=== PATIENT | female | born 1975 | race Two or more races ===

== ENCOUNTER 2021-02-17 09:30 | Inpatient (IN) | payer OTHER ==
[~2021-02-17] VITALS: Ht 165.1 cm; Wt 90.3 kg
[2021-02-17] MEDS ORDERED: PROFERRIN-FORT1 EACH PO (11:28)
[2021-02-22] MEDS ORDERED: OXYC1TAB9 PO (15:29)
[2021-02-22] MEDS ORDERED: DOCUSATE SODIU100 MG PO (15:30)
== END 2021-02-22 15:39 | DRG 743 ==
LOC: O/R 02-19 05:22 → OB/GYN 02-19 05:22 → SURH 02-19 08:30 → OB/GYN 02-19 12:02
PROVIDERS: ADMIT Obstetrics & Gynecology; ATTEND Obstetrics & Gynecology
PROC: 0UT70ZZ Resection of Bilateral Fallopian Tubes, Open Approach (ICD-10-PCS; 2021-02-19)
PROC: 0UT90ZZ Resection of Uterus, Open Approach (ICD-10-PCS; principal; 2021-02-19 08:30)
DX: D25.1 Intramural leiomyoma of uterus (principal); N93.8 Other specified abnormal uterine and vaginal bleeding; Z20.822 Contact with and (suspected) exposure to COVID-19; N84.0 Polyp of corpus uteri

== ENCOUNTER 2021-03-15 16:56 | Emergency (ER) | payer OTHER ==
[~2021-03-15] VITALS: Ht 170.2 cm; Wt 87.5 kg
[~2021-03-15 16:56] MED LIST: DOCUSATE SODIU100 MG PO; OXYC1TAB9 PO; PROFERRIN-FORT1 EACH PO
== END 2021-03-16 14:30 | disposition home or self-care (01) ==
LOC: ER 16:56
DX: M79.604 Pain in right leg (principal); I82.491 Acute embolism and thrombosis of other specified deep vein of right lower extremity

== ENCOUNTER 2023-06-15 05:50 | Inpatient (IN) | payer OTHER ==
[2023-06-15 19:26] LABS: HEMATOCRIT 40.5 % (36.0-45.00); HEMOGLOBIN 13.1 g/dL (12.0-15.00); MEAN CELL VOLUME 89.2 fL (80.00-100.00); MEAN CORPUSCULAR HEMOGLOBIN 28.9 pg (27.00-32.0); MEAN CORPUSCULAR HGB CONC 32.5 g/dl (32.0-36.0); PLATELET COUNT 337 K/uL (150-450); RED BLOOD COUNT 4.54 M/uL (4.00-6.00); RED CELL DISTRIBUTION WIDTH 14.1 % (11.5-14.5)
[2023-06-15 19:47] LABS: ALBUMIN 3.3 gm/dL (3.4-5.0); CALCIUM 8.8 mg/dL (8.5-10.1); CREATININE SERUM 0.78 mg/dL (0.55-1.02); GFR 79.51; MAGNESIUM 2.1 mg/dL (1.8-2.4); PHOSPHOROUS 2.8 mg/dL (2.5-4.9); POTASSIUM 4.11 mEq/L (3.5-5.1)
[2023-06-16 06:16] LABS: HEMOGLOBIN 12.6 g/dL (12.0-15.00); MEAN CELL VOLUME 88.5 fL (80.00-100.00); MEAN CORPUSCULAR HEMOGLOBIN 29.4 pg (27.00-32.0); MEAN CORPUSCULAR HGB CONC 33.2 g/dl (32.0-36.0); PLATELET COUNT 256 K/uL (150-450); RED BLOOD COUNT 4.29 M/uL (4.00-6.00)
[2023-06-16 06:58] LABS: ALBUMIN 3.1 gm/dL (3.4-5.0); CALCIUM 8.4 mg/dL (8.5-10.1); CREATININE SERUM 0.55 mg/dL (0.55-1.02); GFR 118.99; MAGNESIUM 2.1 mg/dL (1.8-2.4); PHOSPHOROUS 2.7 mg/dL (2.5-4.9); POTASSIUM 3.96 mEq/L (3.5-5.1)
== END 2023-06-16 13:14 | disposition home or self-care (01) | DRG 743 ==
LOC: CIR.AMB 05:50 → SURG 19:27
PROVIDERS: ADMIT Obstetrics & Gynecology Gynecologic Oncology; ATTEND Obstetrics & Gynecology Gynecologic Oncology
PROC: 0UT10ZZ Resection of Left Ovary, Open Approach (ICD-10-PCS; 2023-06-15)
PROC: 0DBU0ZZ Excision of Omentum, Open Approach (ICD-10-PCS; 2023-06-15)
PROC: 0DNN0ZZ Release Sigmoid Colon, Open Approach (ICD-10-PCS; 2023-06-15)
PROC: 0UT60ZZ Resection of Left Fallopian Tube, Open Approach (ICD-10-PCS; principal; 2023-06-15 07:00)
DX: N83.12 Corpus luteum cyst of left ovary (principal); N83.02 Follicular cyst of left ovary; Z20.822 Contact with and (suspected) exposure to COVID-19; K66.0 Peritoneal adhesions (postprocedural) (postinfection)

== ENCOUNTER 2024-08-21 12:20 | Emergency (ER) | payer OTHER ==
[~2024-08-21] VITALS: Ht 165.1 cm; Wt 97.5 kg
[2024-08-21] MEDS ORDERED: TRAMADOL HCL 50 MG TABLET PO STA (14:11)
== END 2024-08-21 15:51 | disposition home or self-care (01) ==
LOC: ER 12:23
DX: M25.571 Pain in right ankle and joints of right foot (principal); M79.661 Pain in right lower leg; Z88.6 Allergy status to analgesic agent